=== PATIENT | female | born 1995 | race African-American/Black ===

== ENCOUNTER 2017-12-06 11:29 | Emergency (ER) | payer MEDICAID ==
[~2017-12-06] VITALS: Ht 167.6 cm; Wt 97.1 kg
[~2017-12-06 11:29] MED LIST: ERYTOIN10 LEFT EYE; MAXI5O EACH EYE
[2017-12-06 12:25] VITALS: BP 135/74; PULSE 103
--- NOTE | 2017-12-06 12:33 | PD ---
HPI Travel History International Travel<30 Days: No Contact w/Intl Traveler<30Days: No Known Affected Area: No (Dianna Abad MD) History of Present Illness HPI 22-year-old female at 25 weeks presents to the OB ED for decreased movement. She reports that she has not felt the baby move since 10:00 last night. She denies vaginal bleeding, leakage of fluid, contractions, fevers. She has been receiving [facility] care at [facility]. (iDanna Abad MD) History Past Medical History Medical History: Denies Significant Hx (Dianna Aabd MD) Past Surgical History Surgical History: No Previous Surgery (Dianna Abad MD) Family History Family History: Negative (Dianna Abad MD) Social History Alcohol Use: No Tobacco Use: No Substance Abuse: No (Dianna Abad MD) Allergies-Medications (Allergen,Severity, Reaction): Coded Allergies: No Known Allergies (Verified Adverse Reaction, Unknown, 12/06/17) Home Meds Active Scripts Azqvtdri-Kwafavqyj-Wrpqxtrptwrxn Opth Drops (Maxitrol Opth Drops) 3.5-10,000- 0.1 Mg-Units-% Susp, 1 DROP EACH EYE Q4H for Infection, #1 BOTTLE Prov:Teri Tripathi MD 08/13/16 Erythromycin Opth Oint (Erythromycin Opth Oint) 5 Mg/Gm Oint, 1 APPLIC LEFT EYE QID for Infection for 7 Days, TUBE 0 Refills Prov:Andres Andre MD 08/11/16 Review of Systems Except as stated in HPI: all other systems reviewed are Neg (Dianna Abad MD R1) Physical Exam Narrative GENERAL: Well-nourished, well-developed patient. SKIN: Warm and dry. HEAD: Normocephalic and atraumatic. EYES: No scleral icterus. No injection or drainage. ENT: No nasal drainage noted. Mucous membranes pink. Airway patent. NECK: Supple, trachea midline. No JVD. CARDIOVASCULAR: Regular rate and rhythm without murmurs, gallops, or rubs. RESPIRATORY: Breath sounds equal bilaterally. No accessory muscle use. ABDOMEN/GI: Abdomen soft, non-tender, bowel sounds present, no rebound, no guarding FHT's 160 on Doppler per nurse EXTREMITIES: No cyanosis or edema. BACK: Nontender without obvious deformity. NEUROLOGICAL: Awake and alert. Motor and sensory grossly within normal limits. Five out of 5 muscle strength in all muscle groups. Normal speech. (Dianna Abad MD R1) Data Data Vital Signs Reviewed: Yes (Dianna Abad MD R1) Vital Signs Reviewed: Yes (Joseph Castillo MD R2) MDM Plan 22-year-old female at 25 weeks presents with decreased movement. heart tones 160 on Doppler performed by nurse US w/ BPP reassuring Follow-up with [facility] for routine OB care sdw Dr. Castillo and Dr. Zamudio (Dianna Abad MD R1) Medical Record Reviewed: Yes Plan 22-year-old female at 25 weeks presents with decreased movement. heart tones 160 on Doppler performed by nurse US w/ BPP reassuring FHT reviewed, +accels, moderate variability, no decelerations noted No contractions on tocometer Follow-up with [facility] for routine OB care dw Dr. Zamudio (Joseph Castillo MD R2) Diagnosis Diagnosis: Primary Impression: Decreased movement Additional Impression: Disposition: 01 DISCHARGE HOME Condition: Stable Dianna Abad MD R1 Dec 06, 2017 12:33 Joseph Castillo MD R2 Dec 06, 2017 14:42
== END 2017-12-06 14:52 | disposition home or self-care (01) ==
LOC: HOBED 11:29
DX: O36.8120 Decreased fetal movements, second trimester, not applicable or unspecified (principal); Z3A.25 25 weeks gestation of pregnancy
CPT/HCPCS: 76816; 99284